=== PATIENT | female | born 1980 | race Caucasian/White ===

== ENCOUNTER 2020-11-20 07:56 | Emergency (ER) | payer SELFPAY ==
[~2020-11-20] VITALS: Ht 167.6 cm; Wt 80.0 kg
[2020-11-20] MEDS ORDERED: ABIL10 PO (08:03)
[2020-11-20] MEDS ORDERED: TRAZ-251 MT (08:04)
[2020-11-20 09:40] LABS: HEMATOCRIT. 38.2 % (36.0-48.0); HEMOGLOBIN. 12.7 g/dL (12.0-16.0); MEAN CORPUSCULAR HEMOGLOBIN 30.6 pg (28.0-32.0); MEAN CORPUSCULAR VOLUME 91.9 fL (81.0-99.0); MEAN PLATELET VOLUME 8.4 fl (7.4-10.4); PLATELET 196 x1000/uL (130-400); RED BLOOD CELL COUNT 4.16 mill/uL (4.2-5.4); RED CELL DISTRIBUTION WIDTH 14.2 % (11.6-14.6)
[2020-11-20 09:47] LABS: CHLORIDE 107 mEq/L (98-107)
[2020-11-20 09:51] LABS: CLARITY URINE CLOUDY (CLEAR); COLOR URINE YELLOW (YELLOW); KETONES URINE 4+ (NEGATIVE); LEUKOCYTE ESTERASE URINE 3+ (NEGATIVE); NITRITE URINE NEGATIVE (NEGATIVE); OCCULT BLOOD URINE 2+ (NEGATIVE); PH URINE 5.5 (4.5-8.0); PROTEIN URINE 1+ (NEGATIVE); SPECIFIC GRAVITY URINE 1.018 (1.005-1.030)
[2020-11-20 09:51] LABS: ETHANOL BLOOD < 10 mg/dL
[2020-11-20 10:11] LABS: *BARBITURATES SCREEN URINE NEGATIVE (NEGATIVE)
[2020-11-20 10:12] LABS: *AMPHETAMINES SCREEN URINE NEGATIVE (NEGATIVE); *BENZODIAZEPINES SCREEN URINE NEGATIVE (NEGATIVE); *COCAINE SCREEN URINE NEGATIVE (NEGATIVE)
[2020-11-20 10:13] LABS: METHADONE URINE SCREEN NEGATIVE (NEGATIVE); OPIATES URINE SCREEN NEGATIVE (NEGATIVE); PHENCYCLIDINE URINE SCREEN NEGATIVE (NEGATIVE)
[2020-11-20 10:14] LABS: PLATELET ESTIMATE NORMAL
[2020-11-20 10:14] LABS: CANNABINOID URINE SCREEN NEGATIVE (NEGATIVE)
[2020-11-20] MEDS ORDERED: METR-167 PO ×2 (11:43→13:12)
[2020-11-20] MEDS ORDERED: NITR-87 MT (11:43)
[2020-11-20 13:05] VITALS: BP 117/58
[2020-11-20] MEDS ORDERED: POTASSIUM CHLORIDE 20MEQ TABLET SR PO ONE (13:15)
== END 2020-11-20 13:47 | disposition home or self-care (01) ==
LOC: ER 08:02
DX: F23 Brief psychotic disorder (principal); N30.00 Acute cystitis without hematuria; A59.9 Trichomoniasis, unspecified; F15.10 Other stimulant abuse, uncomplicated; F31.9 Bipolar disorder, unspecified; Z78.1 Physical restraint status; Z88.0 Allergy status to penicillin
CPT/HCPCS: 36415; 80053; 80305; 80320; 81003; 81025; 85025; 87086; 93005; 99285; Z7610; G0480

== ENCOUNTER 2020-11-21 18:58 | Emergency (ER) | payer SELFPAY ==
[~2020-11-21] VITALS: Ht 175.3 cm; Wt 73.0 kg
[~2020-11-21 18:58] MED LIST: ABIL10 PO; METR-167 PO; NITR-87 MT; TRAZ-251 MT
[2020-11-21] MEDS ORDERED: SODIUM CHLORIDE 0.9% 1,000 ML IV ONE (19:30)
[2020-11-21 23:11] LABS: BASOPHILS % 0.3 % (0.0-2.0); EOSINOPHILS % 0.2 % (0.0-5.0); HEMATOCRIT. 40.1 % (36.0-48.0); HEMOGLOBIN. 13.2 g/dL (12.0-16.0); MEAN CORPUSCULAR HEMOGLOBIN 29.8 pg (28.0-32.0); MEAN CORPUSCULAR VOLUME 90.8 fL (81.0-99.0); MEAN PLATELET VOLUME 8.6 fl (7.4-10.4); MONOCYTES % 10.2 % (2.0-8.0); NEUTROPHILS % 76.3 % (40.0-76.0); PLATELET 209 x1000/uL (130-400); RED BLOOD CELL COUNT 4.42 mill/uL (4.2-5.4); RED CELL DISTRIBUTION WIDTH 14.3 % (11.6-14.6)
[2020-11-21 23:19] LABS: CHLORIDE 109 mEq/L (98-107)
[2020-11-21 23:24] LABS: ETHANOL BLOOD < 10 mg/dL
[2020-11-21 23:39] LABS: HCG SCREEN NEGATIVE
[2020-11-22 00:14] LABS: CLARITY URINE CLOUDY (CLEAR); COLOR URINE DARK YELLOW (YELLOW); KETONES URINE 4+ (NEGATIVE); LEUKOCYTE ESTERASE URINE 3+ (NEGATIVE); NITRITE URINE NEGATIVE (NEGATIVE); OCCULT BLOOD URINE 2+ (NEGATIVE); PROTEIN URINE 2+ (NEGATIVE); SPECIFIC GRAVITY URINE 1.028 (1.005-1.030)
[2020-11-22 00:18] LABS: *AMPHETAMINES SCREEN URINE NEGATIVE (NEGATIVE)
[2020-11-22 00:20] LABS: *BARBITURATES SCREEN URINE NEGATIVE (NEGATIVE); *BENZODIAZEPINES SCREEN URINE NEGATIVE (NEGATIVE); *COCAINE SCREEN URINE NEGATIVE (NEGATIVE)
[2020-11-22 00:21] LABS: CANNABINOID URINE SCREEN NEGATIVE (NEGATIVE); METHADONE URINE SCREEN NEGATIVE (NEGATIVE); OPIATES URINE SCREEN NEGATIVE (NEGATIVE); PHENCYCLIDINE URINE SCREEN NEGATIVE (NEGATIVE)
[2020-11-22] MEDS ORDERED: NITR-87 MT (00:35)
[2020-11-22] MEDS ORDERED: NITROFURANTOIN 100MG M/M CAPSULE PO SCH (00:45)
[2020-11-22] MEDS ORDERED: LORAZEPAM 2MG/ML CPJ IM ONE (11:15)
[2020-11-22] MEDS ORDERED: HALOPERIDOL LACTATE 5MG/ML VIAL IM ONE (11:15)
[2020-11-22] MEDS ORDERED: SODIUM CHLORIDE 0.9% 1,000 ML IV ONE ×2 (11:15→18:30)
[2020-11-22] MEDS ORDERED: DEXTROSE 50% WATER 50ML SYRINGE IV ONE (18:30)
[2020-11-22 23:15] VITALS: BP 92/44
[2020-11-23] MEDS ORDERED: ACETAMINOPHEN 325MG TABLET PO ONE (00:15)
== END 2020-11-23 00:28 | disposition home or self-care (01) ==
LOC: ER 18:58
DX: G92 Toxic encephalopathy (principal); N39.0 Urinary tract infection, site not specified; F15.10 Other stimulant abuse, uncomplicated; R55 Syncope and collapse; Z88.0 Allergy status to penicillin; Z79.899 Other long term (current) drug therapy; Z86.59 Personal history of other mental and behavioral disorders; Z98.890 Other specified postprocedural states
CPT/HCPCS: 36415; 70450; 71045; 80053; 80305; 80307; 80320; 80329; 81003; 83690; 84703; 85025; 93005; 96361; 96372; 96374; 99285; J1630; J2060; J7030; G0480